=== PATIENT | male | born 1955 | race Caucasian/White ===

== ENCOUNTER 2020-03-29 07:50 | Observation (INO) ==
--- NOTE | 2020-03-11 11:16 | History & Physical Report ---
Date of Service March 11, 2020 Date of Surgery: 03/29/20 Procedure: Bilateral Total Knee Arthroplasty Assessment & Plan (1) Degenerative arthritis of knee, bilateral: Risks and benefits of procedure discussed in detail today, patient would like to proceed with Bilateral total knee replacements at [facility] as scheduled. will obtain medical clearance from Dr Wellington prior to surgery as well as obtain PATs at [facility]. Will place on Xarelto x 2 weeks post op, f/u 2 weeks post op for routine post-operative care and x-ray, sooner if having any problems. will make arrangements for HHPT at the time of discharge. At this point in time, has failed conservative measures and would like to proceed with surgical intervention. The risks and benefits have been discussed including, but not limited to, risk of infection, nerve injury, stiffness, loss of motion, failure to improve, etc. Reasonable outcomes and options of treatment were discussed. An explanation of appropriate alternatives to the procedure that may be advantageous were discussed and their risks and benefits, as well as the risks and benefits of not proceeding with treatment. I offered to answer any additional inquiries concerning the treatment involved. All the patient's questions were answered. The patient is agreeable, understanding of the treatment plan and alternatives, and wishes to proceed with the treatment plan. History of Present Illness Chief Complaint: Bilateral knee pain Primary Care Provider: NO PCP Mr Prieto is a 64 year old male who is here for a follow up of bilateral knee pain, presents for pre-op evaluation prior to bilateral total knee replacement at [facility]. He complains of pain and stiffness in both knees. He states that the symptoms have been chronic non-traumatic. his symptoms have been chronic and worsening. The symptoms occur constantly with intermittent worsening. Currently the patient states that the symptoms are moderate-severe. The pain is described as aching, sharp, shooting and throbbing. His symptoms occur continuously. He rates his current pain as 8/10. The symptoms are aggravated by ascending stairs, daily activities, driving, exercise, first steps while awake, jumping, kneeling, movement, repetitive activities, sleeping in any position, squatting, standing, walking and weight bearing. In addition to knee pain equally on both sides the patient is also experiencing decreased mobility, difficulty bending, difficulty going to sleep, limping, instability, nighttime awakening. Prior NSAIDs include Mobic and Ibuprofen. Patient reports that he has been treated previously with visco supplementation, reports no relief with that treatment Allergies Allergy/AdvReac Type Severity Reaction Status Date / Time No Known Allergies Allergy Verified 11/27/19 14:45 Home Medications Home Medications Medication Instructions Recorded Confirmed Type Cyanocobalamin 1 dose IM Q4WK 11/27/19 11/27/19 History allopurinol 150 mg PO QAM 11/27/19 11/27/19 History colchicine [Colcrys] 0.6 mg PO Q2D 11/27/19 11/27/19 History doxycycline monohydrate 50 mg PO QAM 11/27/19 11/27/19 History meloxicam 7.5 mg PO Q2D 11/27/19 11/27/19 History sodium bicarbonate 650 mg PO TID 11/27/19 11/27/19 History Past Med/Surg History Medical History Gout Surgical History History of cataract surgery R/L Family History Mother Family history of diabetes mellitus Social History Smoking Status: Never smoker Second Hand Exposure: Yes (FATHER /FRIENDS-ON OCC); Hx Alcohol Use: No Hx Substance Use: No Preferred Language: Mozambican Communication Ability: Effective Medication Technician Required: No Beliefs That Will Affect Care: None Current Living Situation: Spouse Feels Safe at Home: Yes Assistive Devices: Glasses Review of Systems Review of Systems: All systems reviewed & are unremarkable except as noted in HPI & below Constitutional: no fever, no chills and no sweats Respiratory: no cough and no dyspnea Cardiovascular: no chest pain, no dyspnea and no orthopnea Gastrointestinal: no abdominal pain, no nausea and no vomiting Musculoskeletal: as per Subjective / HPI Physical Exam Physical Exam: Ht: 5ft 11in Wt: 91kg BP: 118/68 Pulse: 74 Constitutional: WD/WN, vitals as above no acute distress Respiratory: normal respiratory effort, lungs clear to auscultation no respiratory distress, no labored breathing and does not use accessory muscles Cardiovascular: RRR, no murmur, no edema Gastrointestinal (Abdomen): normal bowel sounds, soft, nontender, no hepatos plenomegaly Musculoskeletal: Overall patient has varus alignment both knees, there is no atrophy or ecchymosis noted, +1 suprapatellar effusion in bilateral knees, he has tenderness to both medial and lateral joint lines right knee, medial sided tenderness to the left knee. negative patellar apprehension, positive crepitation noted to both knees with active ROM. bilateral knees stable to valgus and varus stress, jerman negative, posterior drawer negative. Range of motion right knee 0/3/110, left knee 0/3/115. lower extremities are neurovascularly intact, calf soft and non tender, DP pulse +2 bilaterally. Results & Data Results & Data ([facility]) Diagnostic Findings Bilateral Knee X-ray 11-16-19 confirms advanced degenerative changes bilateral knees, greatest medial compartments and patellofemoral joints, showing joint space narrowing, osteophyte formation and subchondral sclerosis. no acute bony pathology noted.
--- NOTE | 2020-03-22 10:18 | Anesthesiology Consultation ---
Date of Service March 22, 2020 Assessment & Plan (1) Encounter for pre-operative examination: - Per assessment on 03/11: Travel screen- Lives/works in [facility]. Worked in [employer] 03/11 and [facility] 03/09- Patient states he works alone. Uses PPE. Follows COVID precaution guidelines. No known COVID-19 positive contacts or current COVID-19 related symptoms. Surgeon arranging preop COVID testing (scheduled 03/24 [facility]). Awaiting results. - PCP note: 02/24/20: Surgery was originally scheduled for 12/29/19. Rescheduled due to PCP recommendation to follow-up on lymphocytosis. Patient was evaluated by hematology. Follow-up tests do no suggest malignancy. "Pt cleared for bilat knee replacements" Chart Review Chart Review: Acceptable Risk for Surgery and Patient NOT seen in Pre Admission Testing History Surgery Operation Date: 03/29/20 08:35 Proposed Procedures p Bilateral Total Knee Arthroplasty - Urbano Suarez DO Height/Weight Height: 5 ft 11 in Weight: 91.626 kg Allergies Allergy/AdvReac Type Severity Reaction Status Date / Time No Known Allergies Allergy Verified 03/11/20 15:55 Medications Home Medications Medication Instructions Recorded Confirmed Last Taken Cyanocobalamin 1 dose IM Q4WK 11/27/19 03/11/20 Unknown allopurinol 150 mg PO QAM 11/27/19 03/11/20 Unknown colchicine [Colcrys] 0.6 mg PO Q2D 11/27/19 03/11/20 Unknown doxycycline monohydrate 50 mg PO QAM 11/27/19 03/11/20 Unknown meloxicam 7.5 mg PO Q2D 11/27/19 03/11/20 Unknown sodium bicarbonate 650 mg PO TID 11/27/19 03/11/20 Unknown Past Medical History Medical History Gout Past Family History Family History Mother Family history of diabetes mellitus Past Surgical History Surgical History History of cataract surgery R/L Social History Smoking Status: Never smoker Do You Dip or Chew Tobacco: No Hx Alcohol Use: No Hx Substance Use: No Testing Laboratory Results 03/21/20 WBC 6.2 H/H 14.8/42.9 PLATELETS 197 SODIUM 136 POTASSIUM 4.0 CHLORIDE 102 CO2 22 BUN 12.0 CREATININE 1.1 GLUCOSE 106 PT 11.4 PTT 26.4 INR 1.0 HGBA1C 5.5% Electrocardiogram Date: 12/04/19 Findings: + NSR @ (61bpm) Chest X-Ray Date: 12/04/19 Findings: + NAD
[~2020-03-29 07:50] MED LIST: ACETAMINOPHEN 500 MG TAB PO SCH; BUPIVACAINE 0.5 % 5 MG/1 ML PF 10ML VIAL ONE; BUPIVACAINE/EPINEPHRINE 0.25% 1:200,000 30 ML VIAL ONE; CeleBREX 200 MG CAP PO SCH; FAMOTIDINE 20 MG TAB PO SCH; GABAPENTIN 600 MG DOSE PO SCH; LR 500ML BOLUS, THEN 15ML/HR IV SCH; METOCLOPRAMIDE HCL 10 MG TABLET PO SCH; ROPIVACAINE 0.5% HCL/PF 150 MG, BUPIVACAINE 0.5% MPF 30 ML, EPINEPHrine 30MG/30ML (OR U... INFIL SCH; TRANEXAMIC ACID 1,000 MG **IV Intra-op IV SCH; TRANEXAMIC ACID 1,000 MG **IV Pre-op IV SCH; ceFAZolin 2000MG 2,000 MG/15 ML SYR IV SCH; dexAMETHasone 4 MG TAB PO SCH
--- NOTE | 2020-03-29 08:37 | History & Physical Bridge Note ---
Date of Service March 29, 2020 History & Physical Bridge Note I have examined the patient, reviewed the History & Physical and in the interval since the performance of the History & Physical I have noted the following changes of clinical significance: no changes noted
[2020-03-29] MEDS ORDERED: fentaNYL citrate 100 MCG/2 ML VIAL IV PRN (09:16)
[2020-03-29] MEDS ORDERED: ePHEDrine sulfate 50 MG/ML AMP IV PRN (09:16)
[2020-03-29] MEDS ORDERED: HYDROmorphone INJ 2 MG/ML SYR/VIAL IV PRN (09:16)
[2020-03-29] MEDS ORDERED: ATROPINE SULFATE 0.1 MG/ML 10ML SYR IV PRN (09:16)
[2020-03-29] MEDS ORDERED: fentaNYL citrate 100 MCG/2 ML VIAL ONE (09:45)
[2020-03-29] MEDS ORDERED: MIDAZOLAM HCL 1 MG/ML 2ML VIAL ONE ×2 (09:45)
[2020-03-29] MEDS ORDERED: BUPIVACAINE/EPINEPHRINE 0.25% 1:200,000 30 ML VIAL ONE (10:05)
[2020-03-29] MEDS ORDERED: BACITRACIN INJ 50,000 UNIT VIAL ONE (10:23)
[2020-03-29] MEDS ORDERED: PROPOFOL IV EMULSION 10 MG/ML 20 ML VIAL IV ONE ×2 (11:10→12:47)
[2020-03-29] MEDS ORDERED: LIDOCAINE HCL 2% 2 ML VIAL/AMP(20MG/ML) INFIL ONE (11:10)
[2020-03-29] MEDS ORDERED: ONDANSETRON INJ 2 MG/ML 2 ML VIAL ONE (11:10)
--- NOTE | 2020-03-29 12:41 | Operative Report ---
Post Operative Report Pre & Post Diagnosis Operation Date: 03/29/20 10:20 Pre-Op Diagnosis: Right and Left Knee Osteoarthritis Post-Op Diagnosis: Right and Left Knee Osteoarthritis I identified the patient and participated in the time-out.: Yes Procedure Operation Date: 03/29/20 10:20 Actual Procedures p Total Knee Arthroplasty Bilateral(Bilateral) utilizing Fournier & MTX Connect joursanta clarita 2 patient matched total knee arthroplasty right size 6 femur 5 tibia 12 polyethylene 32 oval patella left size 6 femur 5 tibia 11 polyethylene 32 oval patella- Urbano Suarez DO Surgeon Urbano Suarez DO [facility] Estimated Blood Loss 10 Findings Consistent with Post-Op Diagnosis Patient presents with severe DJD bilateral knees varus alignment subchondral sclerosis marginal osteophytes subchondral cystic changes both right and left tibia with eburnated [id number] marginal osteophytes and moderate to large effusion bilaterally Specimens Bone and cartilage Drains Medium bore Hemovac Anesthesia Type MAC Spinal Regional Complications none Disposition Accompanied Patient To Recovery: No Disposition: Recovery Room Indications Patient presents with severe end-stage DJD bilateral knees no response to conservative management bilateral total knee arthroplasty the above intraoperative findings were noted patient failed times a corticosteroid injections Visco supplementations relative rest activity modification bracing and physical therapy patient presents with the above intraoperative findings noted Description of Procedure After proper prepping and draping of the bilateral lower extremities, an anterior midline incision was made over the region of the extensor extensor mechanism of the left knee. After meticulous hemostasis was obtained and maintained in subcutaneous tissues a medial parapatellar incision was made The patella was subluxed lateralward the medial lateral gutter were cleaned from any hypertrophic synovitis and scar tissue of the distal femoral block was placed and the distal femoral osteotomy cut was made subsequently the chamfers anterior and posterior osteotomy cuts were made utilizing the 4-in-1 block the tibia was subsequently subluxed anteriorward medial and ateral meniscal remnants were excised in their entirety remnants of the anterior and posterior cruciate ligaments were excised in their entirety excellent exposure of the proximal tibia was obtained the tibial osteotomy guide was placed on the proximal tibial osteotomy cut was made once again the knee was irrigated with copious amounts of sterile saline solution the patella was subsequently everted lateralward thickened scar tissue around the patella was removed the patella was subsequently cut utilizing a freehand technique and was drilled prepared for final preparation and placement of patella socially flexion-extension gaps were checked and the equal and symmetric trials were placed to the appropriate femoral and tibial trials with poly-spacer being placed for equal flexion and extension gaps and full range of motion including extension to 0 and flexion to 140 the trial components after having been taken to recovery range of motion was subsequently removed meticulous hemostasis was obtained and maintained subsequently a knee block injection of joint cocktail including ropivacaine 0.5% 150 mg. Bupivacaine 0.5% epinephrine 1-200,030 mL's toradol 30 mg dexamethasone 4 mg ketamine 10 mg clonidine 100 micrograms normal saline solution 30 mg was infiltrated into the soft tissues of the posterior knee medial lateral gutters and periosteal synovium special attention was paid to protect neurovascular structures at all times subsequently trial components having been removed the knee was irrigated with sterile saline solution. debris was removed the proximal tibia was subsequently prepared and was made ready for the placement of the tibial component tibial component was also cemented and tamped into position the femoral component was subsequently placed and cemented in the position the patellar component was subsequently cemented in position because hemostasis once again obtained and maintained wound having been thoroughly irrigated with debridement and debridement lavage was performed as well as a medial parapatellar incision closed with #1 Vicryl in interrupted fashion subcutaneous was closed with #2 Vicryl skin was closed with skin clips Next, an anterior midline incision was made over the region of the extensor extensor mechanism of the right knee. After meticulous hemostasis was obtained and maintained in subcutaneous tissues a medial parapatellar incision was made The patella was subluxed lateralward the medial lateral gutter were cleaned from any hypertrophic synovitis and scar tissue of the distal femoral block was placed and the distal femoral osteotomy cut was made subsequently the chamfers anterior and posterior osteotomy cuts were made utilizing the 4-in-1 block the tibia was subsequently subluxed anteriorward medial and ateral meniscal remnants were excised in their entirety remnants of the anterior and posterior cruciate ligaments were excised in their entirety excellent exposure of the proximal tibia was obtained the tibial osteotomy guide was placed on the proximal tibial osteotomy cut was made once again the knee was irrigated with copious amounts of sterile saline solution the patella was subsequently everted lateralward thickened scar tissue around the patella was removed the patella was subsequently cut utilizing a freehand technique and was drilled prepared for final preparation and placement of patella socially flexion-extension gaps were checked and the equal and symmetric trials were placed to the appropriate femoral and tibial trials with poly-spacer being placed for equal flexion and extension gaps and full range of motion including extension to 0 and flexion to 140 the trial components after having been taken to recovery range of motion was subsequently removed meticulous hemostasis was obtained and maintained subsequently a knee block injection of joint cocktail including ropivacaine 0.5% 150 mg. Bupivacaine 0.5% epinephrine 1-200,030 mL's toradol 30 mg dexamethasone 4 mg ketamine 10 mg clonidine 100 micrograms normal saline solution 30 mg was infiltrated into the soft tissues of the posterior knee medial lateral gutters and periosteal synovium special attention was paid to protect neurovascular structures at all times subsequently trial components having been removed the knee was irrigated with sterile saline solution. debris was removed the proximal tibia was subsequently prepared and was made ready for the placement of the tibial component tibial component was also cemented and tamped into position the femoral component was subsequently placed and cemented in the position the patellar component was subsequently cemented in position because hemostasis once again obtained and maintained wound having been thoroughly irrigated with debridement and debridement lavage was performed as well as a medial parapatellar incision closed with #1 Vicryl in interrupted fashion subcutaneous was closed with #2 Vicryl skin was closed with skin clips.. PA-C was necessary for prepping and drapping as well as wound closure of deep fascia Sub cutaneous tissue and skin and was necessary for the case. A sterile compressive dressings were placed, patient was taken to recovery in stable condition of report dictated by Erick I attest to the content of the Intraoperative Record and any orders documented therein. Any exceptions are noted below. I attest to the content of the Intraoperative Record and any orders documented therein. Any exceptions are noted below.
--- NOTE | 2020-03-29 14:01 | XRay Report ---
XR knee LT 1 or 2V routine CLINICAL HISTORY: Postoperative evaluation. COMPARISON: None FINDINGS: Alignment of the total left knee arthroplasty is anatomic. No periprosthetic fracture or u nexpected radiopaque foreign body. Surgical drain is noted. There are skin barry. IMPRESSION: Expected findings following total left knee arthroplasty. ACT 112: Negative or not required by law. Electronically signed by: Bo Valiente M.D. 03/29/2020 1:59 PM
--- NOTE | 2020-03-29 14:02 | XRay Report ---
XR knee RT 1 or 2V routine CLINICAL HISTORY: Surgical Post Op COMPARISON: None. DISCUSSION: There are postsurgical changes of a total right knee arthroplasty and patellar resurfacin g. Anterior skin barry and surgical drains are visualized. The femoral and tibial components appear well seated. There is a 15 mm calcification visualized posteriorly. Gas within the soft tissues cons istent with recent surgery. IMPRESSION: Postsurgical changes of a total right knee arthroplasty. ACT 112: Negative or not required by law. Electronically signed by: Theo Mcintosh M.D. 03/29/2020 2:00 PM
--- NOTE | 2020-03-29 14:06 | Anesthesiology Progress Note ---
Date of Service March 29, 2020 Anesthesia Post Procedure Vital Signs Vital Signs: Temp Pulse Pulse Resp BP Pulse Ox 03/29/20 13:55 51 L 12 97/60 L 94 03/29/20 13:45 54 L 14 105/65 95 03/29/20 13:35 58 L 14 90/60 L 100 03/29/20 13:25 36 C L 61 12 114/63 100 03/29/20 09:00 64 18 133/81 98 03/29/20 08:20 36.7 C 67 20 128/79 95 Transfer of Care Handoff Completed per policy Notes Mental Status: alert / awake / arousable and participated in evaluation Patient Amnestic to Procedure: Yes Nausea / Vomiting: adequately controlled Pain: adequately controlled Airway Patency, RR, SpO2: stable & adequate BP & HR: stable & adequate Hydration State: stable & adequate Anesthetic Complications: no major complications apparent and Pt Satisfied with anesthetic care
[2020-03-29] MEDS ORDERED: MAGNESIUM HYDROXIDE SUSP 30 ML UDC PO PRN (16:01)
[2020-03-29] MEDS ORDERED: bisacodyL 10 MG SUPP PR PRN (16:01)
[2020-03-29] MEDS ORDERED: HYDROmorphone INJ 0.5 MG/0.5 ML SYR IV PRN (16:01)
[2020-03-29] MEDS ORDERED: oxyCODONE HCL IR 5 MG TAB (IMMEDIATE RELEASE) PO PRN (16:01)
[2020-03-29] MEDS ORDERED: SODIUM CHLORIDE 0.9% 1000ML 1,000 ML IV SCH (16:01)
[2020-03-29] MEDS ORDERED: ONDANSETRON INJ 2 MG/ML 2 ML VIAL IV PRN (16:01)
[2020-03-29] MEDS ORDERED: NALOXONE HCL 0.4 MG/1 ML VIAL/CARP IV PRN (16:01)
[2020-03-29] MEDS: ACETAMINOPHEN 500 MG TAB PO SCH ×2 (16:36→19:58)
[2020-03-29] MEDS ORDERED: COLCHICINE 0.6 MG TAB PO SCH (17:00)
[2020-03-29] MEDS: FERROUS GLUCONATE 324 MG TAB PO SCH (17:06)
[2020-03-29] MEDS: ceFAZolin 2000MG 2,000 MG/15 ML SYR IV SCH (17:30)
[2020-03-29] MEDS: DOCUSATE SODIUM 100 MG CAP PO SCH (19:58)
[2020-03-29] MEDS: SENNA 8.6 MG TAB PO SCH (19:58)
[2020-03-29] MEDS: CeleBREX 200 MG CAP PO SCH (19:58)
[2020-03-30] MEDS: ceFAZolin 2000MG 2,000 MG/15 ML SYR IV SCH (01:28)
[2020-03-30] MEDS: ACETAMINOPHEN 500 MG TAB PO SCH ×3 (06:04→20:07)
[2020-03-30 07:42] LABS: Hematocrit (blood only) 35.5 % (42-52); Hemoglobin 12.4 g/dL (14.0-18.0); Mean Corpuscular Hemoglobin 31.2 pg (25-34); Mean Corpuscular Hgb Conc 34.9 g/dL (32-36); Mean Corpuscular Volume 89.2 fL (80-100); Mean Platelet Volume 10.3 fL (7.4-10.4); Platelet Count 167 K/uL (130-400); RDW Coefficient of Variation 12.7 % (11.5-14.5); RDW Standard Deviation 40.9 fL (36.4-46.3); Red Blood Count 3.98 M/uL (4.7-6.1); White Blood Count 11.07 K/uL (4.8-10.8)
[2020-03-30] MEDS ORDERED: INFLUENZA ADMINISTRATION CHARGE ONE (08:00)
[2020-03-30] MEDS ORDERED: INFLUENZA VIRUS QUAD VACCINE 0.5 ML SYR IM ONE (08:00)
[2020-03-30 08:11] LABS: BUN Creatinine Ratio 19.8 (10-20); Calcium 9.2 mg/dl (8.5-10.1); Creatinine Clr Calc Pharmacy 68.5 ml/min; Est GFR (African American) 76.7; Est GFR (Non-African American) 66.2
[2020-03-30] MEDS: allopurinoL 300 MG TAB PO SCH (09:56)
[2020-03-30] MEDS: DOXYCYCLINE HYCLATE 50 MG CAP PO SCH (09:56)
[2020-03-30] MEDS: MULTIVITAMIN TAB PO SCH (09:56)
[2020-03-30] MEDS: DOCUSATE SODIUM 100 MG CAP PO SCH ×2 (09:57→20:07)
[2020-03-30] MEDS: RIVAROXABAN 10 MG TABLET PO SCH (09:57)
[2020-03-30] MEDS: CeleBREX 200 MG CAP PO SCH ×2 (09:57→20:07)
--- NOTE | 2020-03-30 10:03 | Orthopedic Progress Note ---
Date of Service March 30, 2020 Assessment & Plan (1) Degenerative arthritis of knee, bilateral: Postop day 1 status post bilateral total knee arthroplasties. PT/OT protocols. Weightbearing as tolerated. DVT prophylaxis-Xarelto daily, SCDs, KESHA albright. Pain management as written. DC planning-patient will talk to case management and consider home health versus outpatient PT. Admission and Anticipated Discharge Date Admission Date: March 29, 2020 Subjective Postop day 1 Patient currently lying in bed awake and alert. Mild discomfort in the knees at this time. No other complaints. Denies any shortness of breath, chest pain, lightheadedness. Physical Exam Physical Exam: Dressings are clean, dry, and intact bilaterally. Calves are soft nontender. Neurovascular is intact. Toes are mobile. He has good dorsiflexion and plantarflexion of both feet. Hemovac drainage was 125/150 mL from the drains bilaterally. Results & Data ([facility]) Vital Signs (Past 12 Hours) Vital Signs Temp Pulse Resp BP BP Pulse Ox 03/30/20 07:47 36.9 C 62 14 145/70 H 97 03/30/20 03:50 36.6 C 63 18 137/67 96 03/29/20 23:48 36.5 C 53 L 17 118/70 96 Laboratory Results Laboratory Results WBC 11.07 K/uL (4.8-10.8) H 03/30/20 07:10 RBC 3.98 M/uL (4.7-6.1) L 03/30/20 07:10 Hgb 12.4 g/dL (14.0-18.0) L 03/30/20 07:10 Hct 35.5 % (42-52) L 03/30/20 07:10 MCV 89.2 fL (80-100) 03/30/20 07:10 MCH 31.2 pg (25-34) 03/30/20 07:10 MCHC 34.9 g/dL (32-36) 03/30/20 07:10 RDW Std Deviation 40.9 fL (36.4-46.3) 03/30/20 07:10 RDW Coeff of Celi 12.7 % (11.5-14.5) 03/30/20 07:10 Plt Count 167 K/uL (130-400) 03/30/20 07:10 MPV 10.3 fL (7.4-10.4) 03/30/20 07:10 Sodium 137 mmol/L (136-145) 03/30/20 07:10 Potassium 5.0 mmol/L (3.5-5.1) 03/30/20 07:10 Chloride 105 mmol/L (98-107) 03/30/20 07:10 Carbon Dioxide 28 mmol/L (21-32) 03/30/20 07:10 Anion Gap 3.0 (3-11) 03/30/20 07:10 BUN 23 mg/dl (7-18) H 03/30/20 07:10 Creatinine 1.16 mg/dl (0.6-1.4) 03/30/20 07:10 Est Cr Clr Drug Dosing 68.5 ml/min 03/30/20 07:10 Est GFR ( Amer) 76.7 03/30/20 07:10 Est GFR (Non-Af Amer) 66.2 03/30/20 07:10 BUN/Creatinine Ratio 19.8 (-) 03/30/20 07:10 Glucose 111 mg/dl (70-99) H 03/30/20 07:10 Calcium 9.2 mg/dl (8.5-10.1) 03/30/20 07:10 Hepatitis C Ab Screen Neg (Neg) 03/30/20 07:10 Blood Type A Positive 03/29/20 08:17 Antibody Screen NEGATIVE 03/29/20 08:17
[2020-03-30] MEDS: FERROUS GLUCONATE 324 MG TAB PO SCH ×2 (10:20→17:01)
[2020-03-30] MEDS: SENNA 8.6 MG TAB PO SCH (20:08)
[2020-03-31] MEDS: ACETAMINOPHEN 500 MG TAB PO SCH (05:43)
[2020-03-31] MEDS: RIVAROXABAN 10 MG TABLET PO SCH (08:18)
[2020-03-31] MEDS: CeleBREX 200 MG CAP PO SCH (08:18)
[2020-03-31] MEDS: allopurinoL 300 MG TAB PO SCH (08:18)
[2020-03-31] MEDS: DOXYCYCLINE HYCLATE 50 MG CAP PO SCH (08:18)
[2020-03-31] MEDS: DOCUSATE SODIUM 100 MG CAP PO SCH (08:18)
[2020-03-31] MEDS: FERROUS GLUCONATE 324 MG TAB PO SCH (08:18)
[2020-03-31] MEDS: MULTIVITAMIN TAB PO SCH (08:18)
--- NOTE | 2020-03-31 09:20 | Orthopedic Progress Note ---
Date of Service March 31, 2020 Assessment & Plan (1) Degenerative arthritis of knee, bilateral: Postop day 2 status post bilateral total knee arthroplasties. PT/OT protocols. Weightbearing as tolerated. Patient had an episode of lightheadedness and had to be put back into his bed. We will see how he progresses today with his physical therapy and Occupational Therapy. Recheck H&H and BMP today DVT prophylaxis-Xarelto daily, SCDs, KESHA albright. Pain management as written. DC planning-patient planning for home health services upon discharge. Admission and Anticipated Discharge Date Admission Date: March 29, 2020 Subjective Postop day 2 status post bilateral total knee arthroplasties. Patient sitting up at the bedside currently getting ready to start his therapy session. At this point in time, he denies any lightheadedness or diaphoresis. Patient had an episode of this yesterday during one of his ambulation attempts. Currently he states he feels fine and has no symptoms. Denies shortness of breath, chest pain. Denies calf tenderness. Physical Exam Physical Exam: Tricia dressings are clean, dry, and intact bilaterally. No drainage noted. Hemovac drains have been removed. Calves are soft nontender. Neurovascular intact. Toes are mobile. Results & Data ([facility]) Vital Signs (Past 12 Hours) Vital Signs Temp Pulse Resp BP Pulse Ox 03/31/20 06:58 36.6 C 59 L 16 165/77 H 98 03/30/20 23:58 37.1 C 62 18 151/69 H 95
[2020-03-31 09:40] LABS: Hematocrit (blood only) 35.3 % (42-52); Hemoglobin 12.2 g/dL (14.0-18.0); Mean Corpuscular Hemoglobin 31.2 pg (25-34); Mean Corpuscular Hgb Conc 34.6 g/dL (32-36); Mean Corpuscular Volume 90.3 fL (80-100); Mean Platelet Volume 9.9 fL (7.4-10.4); Platelet Count 174 K/uL (130-400); RDW Coefficient of Variation 13.2 % (11.5-14.5); RDW Standard Deviation 43.1 fL (36.4-46.3); Red Blood Count 3.91 M/uL (4.7-6.1); White Blood Count 8.37 K/uL (4.8-10.8)
[2020-03-31 10:47] LABS: BUN Creatinine Ratio 17.4 (10-20); Calcium 8.6 mg/dl (8.5-10.1); Creatinine Clr Calc Pharmacy 59.3 ml/min; Est GFR (African American) 64.4; Est GFR (Non-African American) 55.6
--- NOTE | 2020-04-04 13:33 | Discharge Summary ---
Date of Service April 04, 2020 Admission HPI Per Admitting Provider Mr Prieto is a 64 year old male who is here for a follow up of bilateral knee pain, presents for pre-op evaluation prior to bilateral total knee replacement at [facility]. He complains of pain and stiffness in both knees. He states that the symptoms have been chronic non-traumatic. his symptoms have been chronic and worsening. The symptoms occur constantly with intermittent worsening. Currently the patient states that the symptoms are moderate-severe. The pain is described as aching, sharp, shooting and throbbing. His symptoms occur continuously. He rates his current pain as 8/10. The symptoms are aggravated by ascending stairs, daily activities, driving, exercise, first steps while awake, jumping, kneeling, movement, repetitive activities, sleeping in any position, squatting, standing, walking and weight bearing. In addition to knee pain equally on both sides the patient is also experiencing decreased mobility, difficulty bending, difficulty going to sleep, limping, instability, nighttime awakening. Prior NSAIDs include Mobic and Ibuprofen. Patient reports that he has been treated previously with visco supplementation, reports no relief with that treatment Admission Exam Per Admitting Provider Physical Exam: Ht: 5ft 11in Wt: 91kg BP: 118/68 Pulse: 74 Constitutional: WD/WN, vitals as above no acute distress Respiratory: normal respiratory effort, lungs clear to auscultation no respiratory distress, no labored breathing and does not use accessory muscles Cardiovascular: RRR, no murmur, no edema Gastrointestinal (Abdomen): normal bowel sounds, soft, nontender, no hepatosplenomegaly Musculoskeletal: Overall patient has varus alignment both knees, there is no atrophy or ecchymosis noted, +1 suprapatellar effusion in bilateral knees, he has tenderness to both medial and lateral joint lines right knee, medial sided tenderness to the left knee. negative patellar apprehension, positive crepitation noted to both knees with active ROM. bilateral knees stable to valgus and varus stress, jerman negative, posterior drawer negative. Range of motion right knee 0/3/110, left knee 0/3/115. lower extremities are ne urovascularly intact, calf soft and non tender, DP pulse +2 bilaterally. Principal Diagnosis Bilateral Knee Djd Discharge Exam Physical Exam: Tricia dressings are clean, dry, and intact bilaterally. No drainage noted. Hemovac drains have been removed. Calves are soft nontender. Neurovascular intact. Toes are mobile. Discharge Data Allergies Allergy/AdvReac Type Severity Reaction Status Date / Time No Known Allergies Allergy Verified 03/29/20 08:17 Consultations 03/29/20 16:01 Consult Case Management - Discharge Planning Routine Procedures Performed Operation Date: 03/29/20 10:20 Actual Procedures p Total Knee Arthroplasty Bilateral(Bilateral) - Urbano Suarez DO Ordered Studies 03/29/20 05:00 US - OR guided needle placemen Routine Hospital Course (1) Degenerative arthritis of knee, bilateral: Patient was admitted on the above-noted date and had the above-noted surgeries performed which he tolerated well. On his first postoperative day, he was lying in bed awake and alert. Mild discomfort in the knees. No other complaints. Denies shortness of breath, chest pain, lightheadedness. Dressings were clean, dry, and intact bilaterally. Calves were soft nontender. Neurovascular was intact. Toes were mobile. Vital signs are stable and he was afebrile. Hemoglobin was 12.4. Started on PT and OT protocols and continued on DVT prophylaxis and pain management. By his second postoperative day, he continued to remain stable. He was ambulating 150 feet with physical therapy, vital signs are stable and he was afebrile. Tricia dressings were intact bilaterally. Calves were soft nontender. Neurovascular is intact. He remained stable throughout his stay and it was felt he be discharged to home on 03/31/2020 Total Time Total Time Spent Total Time Spent (In Minutes): 5 Discharge Plan Discharge Items Patient Disposition: Home - Home Health Services Reason For Visit: Right and Left Knee Osteoarthritis Discharge Diagnosis: Right and Left Knee Osteoarthritis Activity: Per Instructions section Weightbearing: Full weightbearing Weightbearing Comment: as tolerated with walker Non-emergency contact: Surgeon Call non-emergency contact if: your pain is not controlled, your temperature is above 101.5, your wound has increased redness and your wound has increased drainage Follow-up/Referrals: PCP,NO [Primary Care Provider] - Diet: Regular Addtl Attending Provider Instructions: ACTIVITY RECOMMENDATIONS: SELF CARE INSTRUCTIONS AFTER TOTAL KNEE REPLACEMENT A. You may need to continue a physical therapy program after discharge from the hospital. There are several options available to you. Your doctor will assist you in selecting the best one for you. 1. An out-patient facility 2 to 3 times a week for therapy or home therapy. 2. Continue working on all exercises taught to you in the hospital. Your goals should be to increase bending of your knee to 90 degrees and beyond and to fully straighten your knee. B. You may progress at your own pace from walking with a walker or crutches to a cane; then to no assistive devices. C. Make walking a part of your daily routine. Be up as much as comfortable with rest periods throughout the day. Rest with leg elevation is very important. Use the ice wrap frequently for the first 3-4 weeks. D. There are no restrictions on activities. You may ride in a car, shop, participate in radiographic technologist and all social activities. E. Wear the long elastic stockings (KESHA hose) 20 hours a day for 2 weeks after surgery. They can be removed several times a day for laundering and for a bath. F. You may shower, no tub baths until cleared by your doctor. SPECIAL CARE INSTRUCTIONS: VERY IMPORTANT TO READ AND REVIEW A. There are a few signs you need to watch for after you are home. Call [facility] if you notice any of the followin. Increased severe knee pain. Some pain is expected especially when you exercise. 2. Increased swelling in your leg or knee; pain or swelling of the calf muscle in either lower leg. 3. Any fluid drainage from the incision. 4. Shortness of breath or chest pain. B. Please call [facility] at if you have any concerns or questions about your operation or recovery. The doctor or his nurse will return your call promptly. C. You must take antibiotics before dental work, bladder, bowel or other surgery. Your doctor will provide you with a permanent care to carry describing this precaution. IMPORTANT: * REMEMBER TO TAKE XARELTO , 10 MG, DAILY FOR 2 WEEKS UNLESS OTHERWISE DIREC KESHA. THIS IS YOUR BLOOD THINNER. AFTER YOU ARE DONE TAKING THE XARELTO, BEGIN TAKING ASPIRIN 81MG ORALLY IN THE MORNING AND EVENING FOR 2 WEEKS. * CALL IF INCREASED PAIN, REDNESS, DRAINAGE OR FEVER GREATER THAT 101. * WEAR KESHA HOSE 20 HOURS PER DAY FOR 2 WEEKS. * Tricia dressing - This is a large suction dressing covering your incision. This will help pull any excess drainage from the wound and allow your incision to heal properly. You may shower with this if you can keep the unit outside of the shower. If any bleeding or leakage is noted please call your doctor's office. This will remain on your incision for 7 days and then should be removed. This can be done yourself or by the home nursing staff if applicable. The entire unit is disposable once removed. Once removed, keep incision clean and dry. If redness or drainage is noted, please call your surgeon. . FOLLOW UP VISIT: If appointment is not already scheduled: Please call [facility] to make a follow-up appointment for 2 weeks after your surgery at . Stand-Alone Forms: My [facility] [email or web address], Smoking Cessation Medications and DC Order Prescriptions: New Xarelto 10 mg Tablet 10 mg PO DAILY 14 Days Qty: 14 RF: 0 celecoxib [Celebrex] 200 mg Capsule 200 mg PO BID 14 Days Qty: 28 RF: 1 acetaminophen 500 mg Tablet 1,000 mg PO Q8 14 Days Qty: 84 RF: 0 polyethylene glycol 3350 [Miralax] 17 gram powder in packet 17 g PO DAILY PRN (Reason: constipation) Qty: 5 RF: 0 Continued sodium bicarbonate 325 mg Tablet 650 mg PO TID RF: 0 allopurinol 300 mg Tablet 150 mg PO QAM RF: 0 colchicine [Colcrys] 0.6 mg Tablet 0.6 mg PO Q2D RF: 0 Cyanocobalamin 1 dose IM Q4WK RF: 0 Discontinued meloxicam 7.5 mg Tablet 7.5 mg PO Q2D RF: 0 doxycycline monohydrate 50 mg Tablet 50 mg PO QAM RF: 0 Discharge Orders: Discharge Order (Routine); Ordered 03/31/20 Ordered By: Pablo John Admission Data Admit Date/Time: 03/29/20 13:33 Attending Provider: Urbano Suarez Admit Provider: Urbano Suarez Primary Care Provider: PCP,NO Other Interventions: Discharge Summary Assessment (RN) Last Done: 03/31/20 12:48
== END 2020-03-31 13:52 | disposition home health service (06) ==
LOC: 3N 07:50 → ASU 07:50